=== PATIENT | male | born 1995 | race Caucasian/White ===

== ENCOUNTER 2020-10-11 23:47 | Emergency (ER) | payer SELFPAY ==
[~2020-10-11] VITALS: Ht 172.7 cm; Wt 84.5 kg
[2020-10-12 00:12] VITALS: BP 137/78; PULSE 72; TEMP 97.5
== END 2020-10-12 01:12 | disposition left against medical advice (07) ==
LOC: COL.ER 23:47
DX: R07.9 Chest pain, unspecified (principal)

== ENCOUNTER 2021-03-17 19:59 | Emergency (ER) | payer OTHER ==
[~2021-03-17] VITALS: Ht 172.7 cm; Wt 88.6 kg
[2021-03-17 20:03] VITALS: TEMP 98.9
[2021-03-17 20:55] LABS: BASO # 0.1 K/mm3 (0.0-0.2); BASO % 0.6 % (0.0-2.0); EOS # 0.3 K/mm3 (0.0-0.7); EOS % 3.8 % (0-4.0); GRAN # 5.7 K/mm3 (1.4-6.5); GRAN % 65.2 % (42.2-75.2); HEMOGLOBIN 15.5 g/dl (13.5-18.0); LYMPH # 2.1 K/mm3 (1.2-3.4); MEAN CELL VOLUME 91 fl (80.0-100.0); MEAN CORPUSCULAR HEMOGLOBIN 32 pg (27.0-31.0); MEAN CORPUSCULAR HGB CONC 35 g/dl (33.0-37.0); MEAN PLATELET VOLUME 9.5 fl (7.4-10.4); MONO # 0.5 K/mm3 (0.1-0.6); MONO % 6.2 % (1.7-9.3); PLATELET COUNT 226 K/mm3 (130-400); RED BLOOD COUNT 4.85 M/mm3 (4.20-5.60); REDCELL DISTRIBUTION WIDTH-CV 11.5 % (11.5-14.5)
[2021-03-17 21:17] LABS: ALANINE AMINOTRANSFERASE 21 U/L (0-55); ALBUMIN 4.3 gm/dL (3.5-5.0); ALKALINE PHOSPHATASE 57 U/L (40-150); ANION GAP 11 mmol/L (7-16); AST,SGOT 17 U/L (5-34); BILIRUBIN,TOTAL 0.7 mg/dL (0.2-1.2); BLOOD UREA NITROGEN 11 mg/dL (9-21); CALCIUM 9.3 mg/dL (8.4-10.2); CARBON DIOXIDE 24 mmol/L (22-29); CHLORIDE 107 mmol/L (98-107); CREATININE, serum 1.11 mg/dL (0.72-1.25); GLUCOSE 89 mg/dL (70-99); POTASSIUM 4.2 mmol/L (3.5-4.5); SODIUM 142 mmol/L (136-145); TOTAL PROTEIN 7.2 gm/dL (6.2-8.1)
[2021-03-17 21:26] LABS: TROPONIN-I < 0.010 ng/mL (0.00-0.033)
[2021-03-17 21:34] VITALS: BP 147/85; PULSE 73
== END 2021-03-17 21:34 | disposition home or self-care (01) ==
LOC: COL.ER 19:59
PROVIDERS: Emergency Medicine
DX: R07.89 Other chest pain (principal)